=== PATIENT | female | born 2000 | race Two or more races ===

== ENCOUNTER 2021-10-04 00:32 | Emergency (ER) | payer OTHER ==
[~2021-10-04] VITALS: Ht 154.9 cm; Wt 56.8 kg
[2021-10-04] MEDS ORDERED: LIDOCAINE 5% (LIDODERM) PATCH TD ONE (10:50)
[2021-10-04] MEDS ORDERED: diazePAM 5MG TABLET PO ONE (10:50)
[2021-10-04] MEDS ORDERED: KETOROLAC 30 MG/ML 1ML VIAL IM ONE (10:50)
[2021-10-04] MEDS ORDERED: CYCL5TAB PO (11:59)
[2021-10-04] MEDS ORDERED: MEDR4PAK PO (11:59)
[2021-10-04 12:15] VITALS: BP 106/59
== END 2021-10-04 12:26 | disposition home or self-care (01) ==
LOC: M ED 00:32
DX: M51.36 Other intervertebral disc degeneration, lumbar region (principal)
CPT/HCPCS: 72131; 73502; 84702; 96372; 99284; J1885

== ENCOUNTER → 2021-10-15 | Outpatient (CLI) | payer OTHER ==
[~2021-10-15] MED LIST: CYCL5TAB PO; ISOVUE-300 61% 50ML VIAL As Ordered ONE; LIDOCAINE 1% MDV 20ML VIAL As Ordered ONE; MEDR4PAK PO; PROHANCE 279.3MG/ML 5ML VIAL As Ordered ONE
== END ==
LOC: M RADPRO 06:37 → EDUNIT# 07:00
PROVIDERS: ATTEND Physician Assistant
DX: M25.551 Pain in right hip (principal)
CPT/HCPCS: 27093; 73723; 77002; A9576; Q9967